=== PATIENT | female | born 1955 | race Caucasian/White ===

== ENCOUNTER 2018-09-02 00:50 | Emergency (ER) | payer OTHER ==
[~2018-09-02] VITALS: Ht 167.6 cm; Wt 56.7 kg
[~2018-09-02 00:50] MED LIST: ALDACTONE25 MG PO; DILAUDID 2 MG TA2 MG PO; DURAGESIC1 EAC3 TRANSDERM; FENTANYL PA50 MCG/HR TRANSDERM; FOLIC ACID 1 MG1 MG PO; HYDROXYZINE PAM50 MG PO; KLOR-CON 1010 MEQ PO; LASIX 20 MG TAB20 MG PO; LASIX 40 MG TAB40 M2 PO; OXYCODONE HCL15 MG PO; ROCEPHIN 11 GM/1001 IV; ULTRA-LIGHT RO1 EACH MC; VISTARIL 25 MG25 M1 PO; VITAMIN B-12500 MCG PO; VITAMIN D 5050000 I1 PO; XANAX1 MG PO; XANAX2 MG PO
[2018-09-02 03:35] VITALS: BP 80/40
== END 2018-09-02 04:00 | disposition home or self-care (01) ==
LOC: ER 00:50
DX: S63.591A Other specified sprain of right wrist, initial encounter (principal); S00.83XA Contusion of other part of head, initial encounter; F41.9 Anxiety disorder, unspecified; Z88.8 Allergy status to other drugs, medicaments and biological substances; Z90.710 Acquired absence of both cervix and uterus; Z90.49 Acquired absence of other specified parts of digestive tract; Z96.651 Presence of right artificial knee joint; Z96.642 Presence of left artificial hip joint; W18.39XA Other fall on same level, initial encounter; Y92.89 Other specified places as the place of occurrence of the external cause; Y93.89 Activity, other specified; Y99.8 Other external cause status

== ENCOUNTER 2018-11-02 18:46 | Emergency (ER) | payer OTHER ==
[~2018-11-02] VITALS: Ht 165.1 cm; Wt 54.4 kg
[2018-11-02] MEDS ORDERED: XANAX1 MG PO (19:22)
[2018-11-02 19:54] VITALS: BP 171/82
== END 2018-11-02 20:35 | disposition home or self-care (01) ==
LOC: ER 18:46
DX: R07.89 Other chest pain (principal); M79.642 Pain in left hand; Z88.8 Allergy status to other drugs, medicaments and biological substances; Z79.899 Other long term (current) drug therapy; Z90.710 Acquired absence of both cervix and uterus; Z90.49 Acquired absence of other specified parts of digestive tract; Z96.651 Presence of right artificial knee joint; Z96.642 Presence of left artificial hip joint; Y04.0XXA Assault by unarmed brawl or fight, initial encounter; Y93.89 Activity, other specified; Y92.89 Other specified places as the place of occurrence of the external cause; Y99.9 Unspecified external cause status